=== PATIENT | male | born 1955 | race Caucasian/White ===

== ENCOUNTER 2018-10-11 14:02 | Observation (INO) ==
--- NOTE | 2018-10-11 14:35 | Emergency Department Note ---
Disposition Clinical Impression: ACS (acute coronary syndrome), MAURICE (acute kidney injury), Hypercalcemia Disposition: Admitted As Inpatient Condition: Fair Referrals: Drea Hernandez MD [Primary Care Provider] - Forms: ED Satisfaction Letter, Work/School Release Time of Disposition: 17:40 Abdominal Pain HPI - General Chief Complaint: ED Abdominal Pain Stated Complaint: JAMES,ABD Pain,CP Time Seen by Provider: 10/11/18 14:07 Source: patient - History of Present Illness HPI Narrative: Mr. Cooley is a 63 y/o male with a pmh of HTN, diabetes who presented to the ED with chest pain and right upper quadrant pain. Patient states that 4 days ago, he had abdominal pain in the right upper and lower quadrant along with the diarrhea 10 times. He states that he time he was lightheaded and nauseated. On diarrhea had improved and he continued to have lightheadedness began to have chest pain on the right side. He states that it is intermittent and occurring more when he was walking. His abdominal pain. He felt weak diffusely and almost passed out last night. This morning he woke up with a headache that is currently a 5/10 in the occiptal region. He has had his gallbladder removed. No recent sick contacts. He denies fevers, coughing, dysuria. Pain Scale: 6 - Related Data Home Medications Medication Instructions Recorded Confirmed Aspirin [Adult Aspirin] 81 mg PO DAILY 10/11/18 10/11/18 Atorvastatin [Lipitor] 20 mg PO HS 10/11/18 10/11/18 Cyclobenzaprine [Flexeril] 10 mg PO BID 10/11/18 10/11/18 Dulaglutide [Trulicity] 1.5 mg SQ QWEEK 10/11/18 10/11/18 Ergocalciferol (VITAMIN D2) 50,000 unit PO QWEEK 10/11/18 10/11/18 [Vitamin D2] Gabapentin [Neurontin] 400 mg PO TID 10/11/18 10/11/18 Glimepiride [Amaryl] 2 mg PO BID 10/11/18 10/11/18 Insulin Glargine,Hum.rec.anlog 80 unit SQ BID 10/11/18 10/11/18 [Basaglar [place] U-100] Lisinopril-HCTZ 10-12.5 [Prinzide 2 each PO DAILY 10/11/18 10/11/18 10-12.5] Allergies Allergy/AdvReac Type Severity Reaction Status Date / Time No Known Allergies Allergy Verified 02/15/17 17:16 Abdominal Pain PMH - Past Medical History Medical history: Reports: arthritis, diabetes, hypertension Male Surgical History: Reports: cholecystectomy Psychiatric history: Reports: no psych history - Social History Smoking status: Never smoker Alcohol use: Reports: none Drug use: Reports: none Physical Exam Constitutional: Alert, in no acute distress Head: Normocephalic, atraumatic Heart: Normal, regular rate and rhythm, no murmurs, chest pain not reproducible with palpation Lungs: Clear to auscultation, no wheezes, rales, or rhonchi Abdomen: tenderness present in his RUQ, Soft, nondistended, no guarding or rigidity. Extremities: No edema, radial pulse +2/4, capillary refill <2sec. Skin: Skin warm and dry, no lesions, no rashes, no jaundice Neurologic: strength 5/5 in all extremities Psych: Cooperative with exam, good eye contact, cognitive function intact - General Limitations: no limitations General appearance: alert, in no apparent distress Course Course Narrative: Upon initial evaluation, patient is alert in no acute distress. He is sitting comfortably in the ED. Due to chest pain and lightheadness we will obtain an EKG , CMP, CBC, and troponin. Patient states that this is similar to how he felt for pneumonia but currently having associated coughing. - Reevaluation(s) Reevaluation #1: EKG show sinus rhythm, QTC and [place] intervals are normal. [place] normal. Flattening of T-wave in lead III. Heart score is 6 without troponin. Will give ASA. Time: 15:03 Reevaluation #2: CXR showed no acute processes. Labs showed elevated creatinine from baseline of 2.1. Troponin was negative. Calcium was elevated at 12. Patient was diagnosed with MAURICE and hypercalemia. Discussed admission with hospitalist Dr. Rockwell and she accepted admission for chest pain workup for CAD, MAURICE and hyperkalemia. Time: 17:40 Vital Signs Temperature 97.7 F 10/11/18 14:04 Pulse Rate 104 10/11/18 14:04 Respiratory Rate 18 10/11/18 14:04 Blood Pressure 159/83 10/11/18 14:04 O2 Sat by Pulse Oximetry 94 10/11/18 14:04 Temperature 97.7 F 10/11/18 14:18 Pulse Rate 104 10/11/18 14:18 Respiratory Rate 18 10/11/18 14:18 Blood Pressure 159/83 10/11/18 14:18 O2 Sat by Pulse Oximetry 94 10/11/18 14:18 Oxygen Delivery Oxygen Delivery Room Air Abdominal Pain - Medical Records Medical records reviewed: Yes I reviewed the patient's medical records. - Lab Data Lab results reviewed: Yes I reviewed the patient's lab results. Result diagrams: 10/11/18 14:38 10/11/18 14:31 Lab Results 10/11/18 10/11/18 10/11/18 Range/Units 14:31 14:38 14:38 WBC 11.0 (4.3-11.1) K/mcL RBC 5.11 (4.19-5.50) M/mcL Hgb 14.8 (12.9-16.9) g/dL Hct 44.8 (37.5-50.1) % MCV 87.7 (83.0-100.0) fL MCH 29.0 (28.0-33.3) pg MCHC 33.0 (31.6-35.5) g/dL RDW 13.5 (11.5-14.5) % Plt Count 240 (140-400) K/mcL MPV 10.1 (9.4-12.4) fL Immature Gran % 0.5 (0-4) % Seg Neutrophils % 77.9 % Lymphocytes % 9.8 % Monocytes % 9.8 % Eosinophils % 1.2 % Basophils % 0.8 % Neutrophils # 8.6 (1.6-8.9) K/mcL Lymphocytes # 1.1 (0.6-4.6) K/mcL Monocytes # 1.1 (0.0-1.3) K/mcL Eosinophils # 0.1 (0.0-0.6) K/mcL Basophils # 0.1 (0.0-0.2) K/mcL Sodium 137 (136-145) mEq/L Potassium 4.1 (3.5-5.1) mEq/L Chloride 100 (98-107) mEq/L Carbon Dioxide 28 (23-29) mEq/L BUN 41 H (8-23) mg/dL Creatinine 2.12 H (0.70-1.30) mg/dL Est GFR ( Amer) 38 L (> 60) Est GFR (Non-Af Amer) 32 L (> 60) BUN/Creatinine Ratio 19 (6-26) Glucose 175 H (70-105) mg/dL Calculated Osmolality 298 (280-300) Calcium 12.2 H (8.6-10.3) mg/dL Total Bilirubin 0.9 (0.3-1.0) mg/dL AST 33 (13-39) Units/L ALT 37 (7-52) Units/L Alkaline Phosphatase 97 (34-104) Units/L Troponin I < 0.03 (< 0.04) ng/mL Serum Total Protein 7.5 (6.4-8.9) g/dL Albumin 4.7 (3.5-5.7) g/dL Globulin 2.8 (2.4-3.5) g/dL Albumin/Globulin Ratio 1.7 (1.1-2.2) - Radiology Data Radiology results reviewed: Yes I reviewed the patient's radiology results.
[2018-10-11 14:54] LABS: Basophils # 0.1 K/mcL (0.0-0.2); Basophils % 0.8 %; Eosinophils # 0.1 K/mcL (0.0-0.6); Eosinophils % 1.2 %; Hematocrit 44.8 % (37.5-50.1); Hemoglobin 14.8 g/dL (12.9-16.9); Immature Granulocytes % 0.5 % (0-4); Lymphocytes # 1.1 K/mcL (0.6-4.6); Lymphocytes % 9.8 %; Mean Corpuscular Volume 87.7 fL (83.0-100.0); Mean Platelet Volume 10.1 fL (9.4-12.4); Monocytes # 1.1 K/mcL (0.0-1.3); Monocytes % 9.8 %; Neutrophils # 8.6 K/mcL (1.6-8.9); Platelet Count 240 K/mcL (140-400); Red Blood Count 5.11 M/mcL (4.19-5.50); Red Cell Distribution Width 13.5 % (11.5-14.5); Segmented Neutrophils % 77.9 %
[2018-10-11] MEDS ORDERED: Aspirin 325 MG TABLET PO ONE (14:57)
--- NOTE | 2018-10-11 15:00 | Emergency Department Note ---
Disposition Clinical Impression: ACS (acute coronary syndrome) Disposition: Admitted As Inpatient Forms: ED Satisfaction Letter, Work/School Release Time of Disposition: 15:00 General Adult HPI - General Chief complaint: ED Abdominal Pain Stated complaint: JAMES,ABD Pain,CP Time Seen by Provider: 10/11/18 14:07 Source: patient Limitations: no limitations Nursing Notes Reviewed: Yes Vital Signs Reviewed: Yes - History of Present Illness HPI Narrative: Attestation note: Patient was seen with the family practice resident: Dr. Ivette Centeno. I was present for the significant portions of the performance and interpretation of procedures and EKGs. I have personally performed a face to face evaluation on this patient. I have reviewed and agree with history and physical examination patient management and disposition. Briefly: 63-year-old male comes in with exertional tolerance change diaphoresis right-sided chest pain pain radiating to the neck and jaw his HEART score is 6 moderate risk. He also some right upper quadrant discomfort but is a distant cholecystectomy. Patient said he had a treadmill test "many years ago". No recent evaluations. EKG shows nonspecific ST-T changes again his HEART score 6 patient understands the recommendations are to admit him. He does take a baby aspirin daily will be given 325 mg of aspirin. Currently he is chest pain-free will undergo chest x-ray troponin screening labs and then admission. Admission disposition pending Pain Scale: 6 - Related Data Previous Rx's Medication Instructions Recorded HYDROcodone/Acet 5/325 mg [[place] 1 tab PO Q6H PRN #25 tab 07/29/16 5-325 mg] Ondansetron ODT [Zofran ODT] 4 mg SL Q6HR #10 tab.rapdis 02/15/17 Allergies Allergy/AdvReac Type Severity Reaction Status Date / Time No Known Allergies Allergy Verified 02/15/17 17:16 Past Medical History - Past Medical History Medical history: Reports: arthritis, diabetes, hypertension Psychiatric history: Reports: no psych history - Social History Smoking Status: Never smoker Smokeless Tobacco Status: Yes Alcohol use: Reports: none Drug use: Reports: none Physical Exam - General Limitations: no limitations General appearance: alert, in no apparent distress Course Vital Signs Temperature 97.7 F 10/11/18 14:04 Pulse Rate 104 10/11/18 14:04 Respiratory Rate 18 10/11/18 14:04 Blood Pressure 159/83 10/11/18 14:04 O2 Sat by Pulse Oximetry 94 10/11/18 14:04 Temperature 97.7 F 10/11/18 14:18 Pulse Rate 104 10/11/18 14:18 Respiratory Rate 18 10/11/18 14:18 Blood Pressure 159/83 10/11/18 14:18 O2 Sat by Pulse Oximetry 94 10/11/18 14:18 Oxygen Delivery Oxygen Delivery Room Air Medical Decision Making - Lab Data Result diagrams: 10/11/18 14:38 Lab Results 10/11/18 Range/Units 14:38 WBC 11.0 (4.3-11.1) K/mcL RBC 5.11 (4.19-5.50) M/mcL Hgb 14.8 (12.9-16.9) g/dL Hct 44.8 (37.5-50.1) % MCV 87.7 (83.0-100.0) fL MCH 29.0 (28.0-33.3) pg MCHC 33.0 (31.6-35.5) g/dL RDW 13.5 (11.5-14.5) % Plt Count 240 (140-400) K/mcL MPV 10.1 (9.4-12.4) fL Immature Gran % 0.5 (0-4) % Seg Neutrophils % 77.9 % Lymphocytes % 9.8 % Monocytes % 9.8 % Eosinophils % 1.2 % Basophils % 0.8 % Neutrophils # 8.6 (1.6-8.9) K/mcL Lymphocytes # 1.1 (0.6-4.6) K/mcL Monocytes # 1.1 (0.0-1.3) K/mcL Eosinophils # 0.1 (0.0-0.6) K/mcL Basophils # 0.1 (0.0-0.2) K/mcL
[2018-10-11 15:17] LABS: Albumin 4.7 g/dL (3.5-5.7); Albumin/Globulin Ratio 1.7 (1.1-2.2); Bilirubin,Total 0.9 mg/dL (0.3-1.0); Calcium 12.2 mg/dL (8.6-10.3); Globulin 2.8 g/dL (2.4-3.5); Potassium 4.1 mEq/L (3.5-5.1); Total Protein 7.5 g/dL (6.4-8.9)
[2018-10-11] MEDS ORDERED: 0.9 % Sodium Chloride 500 ML IVC ONE (15:23)
[2018-10-11] MEDS ORDERED: Naloxone 0.4 MG/ML INJ IVP PRN ×2 (17:24→17:29)
[2018-10-11] MEDS ORDERED: Dextrose Gel 15 GM/37.5 ML TUBE PO PRN ×2 (17:28)
[2018-10-11] MEDS ORDERED: *HR* Dextrose 50 % in Water (Syg) 50 ML SYRINGE IVP PRN (17:28)
[2018-10-11] MEDS ORDERED: D5% in Water 1,000 ML IVC PRN (17:28)
[2018-10-11] MEDS ORDERED: traMADol 50 MG TABLET PO PRN (17:29)
[2018-10-11] MEDS ORDERED: Acetaminophen 325 MG TABLET PO PRN (17:29)
[2018-10-11] MEDS ORDERED: *HR* OxyCODONE Immed Rel 5 MG TABLET PO PRN (17:29)
--- NOTE | 2018-10-11 17:31 | Internal Med History&Physical ---
Date of Encounter: 10/11/18 Time of Encounter: 17:00 Internal Medicine - H&P: HPI Chief complaint: Chest and abdominal pain Admitted From: Emergency Dept Plans for Post Hospital Care: Home History of present illness: Mr. Cooley is a 63 year old male with a past medical history significant for hypertension, hyperlipidemia, diabetes mellitus, presented to the hospital and only has not been feeling well, particularly any chest pain on the right side, for the past few days, moderate intensity, sharp, localized to the lower rip, aggravated with movement, no relieving factors. Patient also complaining of abdominal pain, right upper quadrant, sharp, nonradiating, no aggravating or relieving factors. The patient mentioned that he started feeling sick last Saturday, he thought that he caught a cold. He also had diarrhea, 5-10 episodes one day, watery, no associated blood or mucus. Diarrhea resolved next day but the patient was still feeling sick and he took off from work. Then he developed this abdominal pain and chest pain which brought him to the hospital. Patient has been feeling overall lethargic, weak, having little energy. Patient also mentions that he has lost 11 pounds in last 1 month, it was u nintentional. Also complains of drenching sweats in past 1 week. Patient attending gives no medications regularly. In the ED, patient was hemodynamically stable. EKG was done which did not show any acute abnormalities concerning for acute HI. Troponin was within normal limit. Chest x-ray was normal. Laboratory workup showed elevated calcium levels, acute kidney injury with creatinine of 2.12. Patient was given IV fluids and admitted for further management. Past Med Surg Social Fam HX - Past Medical History Medical history: arthritis, diabetes, hypertension Psychiatric history: no psych history - Past Surgical History Surgical History: cholecystectomy - Social History Smoking Status: Never smoker Smokeless Tobacco Status: Yes Alcohol use: none Drug use: none - Additional Family History Additional family history: Negative for any malignancy in 1st degree relative. Positve for cardiac conditions in parents Internal Medicine - H&P: Meds Aspirin [Adult Aspirin] 81 mg PO DAILY 10/11/18 [History] Atorvastatin [Lipitor] 20 mg PO HS 10/11/18 [History] Cyclobenzaprine [Flexeril] 10 mg PO BID 10/11/18 [History] Dulaglutide [Trulicity] 1.5 mg SQ QWEEK 10/11/18 [History] Ergocalciferol (VITAMIN D2) [Vitamin D2] 50,000 unit PO QWEEK 10/11/18 [History] Gabapentin [Neurontin] 400 mg PO TID 10/11/18 [History] Glimepiride [Amaryl] 2 mg PO BID 10/11/18 [History] Insulin Glargine,Hum.rec.anlog [Basaglar [place] U-100] 80 unit SQ BID 10/11/18 [History] Lisinopril-HCTZ 10-12.5 [Prinzide 10-12.5] 2 each PO DAILY 10/11/18 [History] Allergy/AdvReac Type Severity Reaction Status Date / Time No Known Allergies Allergy Verified 02/15/17 17:16 All Systems PM: A 10-system review of systems was performed and is negative for pertinent findings except as documented above in the HPI. Review of systems: General: Negative for fever, chills, rigors. HEENT: Negative for swelling, discharge from nose, discharge from ears. EYES: Negative for any discharge from the eyes. Respiratory: Negative for shortness of breath, orthopnea, exertional dyspnea. Cardiovascular: See HPI. Gastrintestical: See HPI Genitourinary: Negative for dysuria, hematuria, nocturia, increased frequency of urine. Hematological: Negative for blood loss, negative for active cancer. Neurological: Negative for headache, dizziness, blurry vision, loss os power and sensations. Endocrinology: Negative for constipation, polyuria, polydipsia. Psychiatric: Negative for anxiety or depression. - Constitutional Vitals: Temp Pulse Resp BP Pulse Ox 97.7 F 84 17 131/80 97 10/11/18 14:18 10/11/18 15:58 10/11/18 15:58 10/11/18 15:58 10/11/18 15:58 Exam: General: Alert and oriented, no physical distress, able to follow commands. HEENT: No thyromegaly, no lymphadenopathy, no discharge. Eyes: No discharge. Respiratory: Normal vesicular breathing, no added sounds, breathing equal in both sides. CVS: Normal heart sounds, no murmurs, no edema. Extremities: No peripheral edema, peripheral pulses intact. Lymph nodes: No lymphadenopathy Gastrointestinal: Soft, but tenderness appreciated in the right upper quadrant. No organomegaly appreciated. Musculoskeltal: Normal rnage on motion, no mid tendreness in the back bone. Genitourinary: No paravertebral tenderness. Neurological: Alert and oriented. No focal deficits. Cranial nerves II-XII intact. Internal Med - H&P Results - Labs CBC & Chem 7: 10/11/18 14:38 10/11/18 14:31 Labs: Short CBC 10/11/18 Range/Units 14:38 WBC 11.0 (4.3-11.1) K/mcL Hgb 14.8 (12.9-16.9) g/dL Hct 44.8 (37.5-50.1) % Plt Count 240 (140-400) K/mcL Neutrophils # 8.6 (1.6-8.9) K/mcL BMP 10/11/18 14:31 Sodium 137 Potassium 4.1 Chloride 100 Carbon Dioxide 28 BUN 41 H Creatinine 2.12 H Glucose 175 H Calcium 12.2 H Cardiac Enzymes 10/11/18 Range/Units 14:38 Troponin I < 0.03 (< 0.04) ng/mL Liver Function 10/11/18 Range/Units 14:31 Total Bilirubin 0.9 (0.3-1.0) mg/dL AST 33 (13-39) Units/L ALT 37 (7-52) Units/L Alkaline Phosphatase 97 (34-104) Units/L Albumin 4.7 (3.5-5.7) g/dL - Impressions ITS Impressions Chest X-Ray 10/11/18 14:28 IMPRESSION: Unremarkable portable chest radiograph. D/ / Rico Ham MD / Rico Ham MD Interpreting Provider: Rico Ham MD - Assessment and Plan (1) MAURICE (acute kidney injury) Current Visit: Yes Status: Acute Assessment and plan: Etiology unclear. Could be related to hypercalcemia. BUN/Cr patient with elevated points towards prerenal etiology. Continue the patient on IV fluids. Ordered CT scan of the abdomen to rule out kidney stone considering hypoglycemia and abdominal pain. Order urine studies including urine calcium, urine sodium, urine creatinine, osmolality. -Continue to monitor the kidney functions. (2) Hypercalcemia Current Visit: Yes Status: Acute Assessment and plan: -Presented with a calcium of 12.2. Previous labs from one year that showed normal calcium Etiology unclear. Patient was given IV fluids in the beginning We will continue the patient on IV fluids. Patient was taking vitamin D and calcium at home. We will order repeat calcium, ionized calcium, parathyroid hormone levels, vitamin D levels. Considering abdominal and chest pain, and weight loss, order CT scan of the chest to rule out any occult malignancy. (3) Chest pain Current Visit: Yes Status: Acute Assessment and plan: Etiology unclear. -Does not seem to be ACS -EKG was normal. Troponin were normal. Could be muscular skeletal vs pleuritis -Pain management. continue to monitor. Qualifiers: Chest pain type: other chest pain Qualified Code(s): R07.89 - Other chest pain; R07.8 - Other chest pain (4) Abdominal pain Current Visit: Yes Status: Acute Assessment and plan: Right upper quadrant abdominal pain. etiology unclear. -that does not seem to be appendicitis or cholecystitis. Patient had history of cholecystectomy. Pain management. Order CT scan of the abdomen. Qualifiers: Abdominal location: right upper quadrant Qualified Code(s): R10.11 - Right upper quadrant pain (5) Diabetes mellitus Current Visit: Yes Status: Acute Assessment and plan: Type 2. -On multiple medications at home including insulin. Hold other antidiabetic medication in context of worsening kidney functions. Patient already took 80 units of insulin Lantus in the morning. He normally takes 80 units twice a day. Considering his worsening kidney functions, we will start him on 40 units of insulin detemir at this point. Ordered a moderate dose sliding scale with meals. consistent carb diet. 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 Continue atorvastatin Qualifiers: Hyperlipidemia type: unspecified Qualified Code(s): E78.5 - Hyperlipidemia, unspecified (7) Hypertension Current Visit: Yes Status: Acute Assessment and plan: Takes lisinopril and HCTZ at home. Hold in context of his worsening kidney functions and hypercalcemia. Ordered hydralazine when necessary for the hypertension. blood pressure for now seems to be stable. Qualifiers: Hypertension type: essential hypertension Qualified Code(s): I10 - Essential (primary) hypertension - Summary of Assessment and Plan Summary of Assessment and Plan: -Diet: carb Code status: full code - Time Spent With Patient Total time spent is greater than 50% in coordination of care (as documented) at patient's floor/unit and/or counseling patient:
[2018-10-11 18:18] LABS: VBG Ionized Calcium 1.44 mmol/L (1.15-1.35)
[2018-10-11] MEDS: 0.9 % Sodium Chloride 1,000 ML IVC SCH (18:27)
[2018-10-11] MEDS: *HR* Heparin 5,000 UNIT/ML VIAL SQ SCH (18:27)
[2018-10-11] MEDS ORDERED: Insulin DETEMIR 100 UNIT/ML X5UNITS SQ SCH (21:00)
[2018-10-11] MEDS: Gabapentin 300 MG CAPSULE PO SCH (21:15)
[2018-10-12 00:48] LABS: Basophils # 0.1 K/mcL (0.0-0.2); Basophils % 0.8 %; Eosinophils # 0.5 K/mcL (0.0-0.6); Eosinophils % 5.3 %; Hematocrit 41.1 % (37.5-50.1); Hemoglobin 13.5 g/dL (12.9-16.9); Immature Granulocytes % 0.2 % (0-4); Lymphocytes # 2.2 K/mcL (0.6-4.6); Lymphocytes % 24.7 %; Mean Corpuscular HGB Conc 32.8 g/dL (31.6-35.5); Mean Corpuscular Hemoglobin 29.2 pg (28.0-33.3); Mean Corpuscular Volume 88.8 fL (83.0-100.0); Monocytes # 0.9 K/mcL (0.0-1.3); Monocytes % 10.7 %; Neutrophils # 5.1 K/mcL (1.6-8.9); Platelet Count 238 K/mcL (140-400); Red Blood Count 4.63 M/mcL (4.19-5.50); Red Cell Distribution Width 13.8 % (11.5-14.5); Segmented Neutrophils % 58.3 %; White Blood Count 8.7 K/mcL (4.3-11.1)
[2018-10-12] MEDS: 0.9 % Sodium Chloride 1,000 ML IVC SCH ×3 (01:06→20:49)
[2018-10-12 01:07] LABS: Calcium 10.6 mg/dL (8.6-10.3); Magnesium 1.7 mg/dL (1.6-2.6); Phosphorous 2.6 mg/dL (2.7-4.5); Potassium 3.7 mEq/L (3.5-5.1)
[2018-10-12] MEDS: *HR* Heparin 5,000 UNIT/ML VIAL SQ SCH ×2 (05:20→17:27)
[2018-10-12] MEDS: Gabapentin 300 MG CAPSULE PO SCH ×3 (08:23→20:48)
[2018-10-12] MEDS: Aspirin Enteric Coated 81 MG Tablet PO SCH (08:23)
[2018-10-12] MEDS: Insulin LISPRO 300 UNITS/3 ML VIAL SQ SCH ×3 (08:24→17:26)
--- NOTE | 2018-10-12 08:54 | Internal Med Progress Note ---
Hospitalist Progress Note - Encounter Date of Encounter: 10/12/18 Time of Encounter: 08:40 - Subjective Interval History: Seen at bedside. Is feeling better. Mentions improvement in the pain in the abdomen as well as chest. Calcium levels also improving. Denies chest pain, SOB, fever, chills, rigors. Doing overall better. No acute events overnight. - Exam Vitals: Temp Pulse Resp BP Pulse Ox 97.6 F 71 16 118/70 95 10/12/18 06:48 10/12/18 06:48 10/12/18 06:48 10/12/18 06:48 10/12/18 06:48 Exam: General: Alert and oriented, no physical distress, able to follow commands. HEENT: No thyromegaly, no lymphadenopathy, no discharge. Eyes: No discharge. Respiratory: Normal vesicular breathing, no added sounds, breathing equal in both sides. CVS: Normal heart sounds, no murmurs, no edema. Extremities: No peripheral edema, peripheral pulses intact. Lymph nodes: No lymphadenopathy Gastrointestinal: Soft, tenderness improved since yesterday, non distended. Musculoskeltal: Normal rnage on motion, mid tendreness in the back bone. Genitourinary: No paravertebral tenderness. Neurological: Alert and oriented. No focal deficits. Cranial nerves II-XII int act. - Assessment and Plan (1) MAURICE (acute kidney injury) Current Visit: Yes Status: Acute Assessment and Plan: Etiology unclear. Could be related to hypercalcemia. BUN/Cr patient with elevated points towards prerenal etiology. -Urine studies were not ollected yesterday, CT scan of the abdomen negative for kidney stones. Continue the patient on IV fluids. Await urine studies including urine calcium, urine sodium, urine creatinine, osmolality. -Continue to monitor the kidney functions. (2) Hypercalcemia Current Visit: Yes Status: Acute Assessment and Plan: -Presented with a calcium of 12.2. Previous labs from one year that showed normal calcium Etiology unclear. PTH v low, possiblities are malignancy, vitamin D intoxication, granulomatous disease, increased calcium ingestion, thiazide use. -25 OH level are 49, -Awaiting PTHrP, SPEP, free light chains. -CT scan of the chest negative fr any malignancy, CT abdomen did show a granuloma in the liver but unsure about any previous granulamomatous diseease history which could explain hypercalcemia. -ALso showed adrenal adenoma, whihc seems benign. We will continue the patient on IV fluids. -Obtain repeat labs tomorrow (3) Chest pain Current Visit: Yes Status: Acute Assessment and Plan: Etiology unclear. -Does not seem to be ACS -EKG was normal. Troponin were normal. Could be muscular skeletal vs pleuritis -Pain management. continue to monitor. (4) Abdominal pain Current Visit: Yes Status: Acute Assessment and Plan: - Resolved. etiology unclear. -CT scna of the abdomen without any masses. Has grnuloma in the liver but does not seem to be casue of pain as the pain has resolved. Pain management. (5) Diabetes mellitus Current Visit: Yes Status: Acute Assessment and Plan: Type 2. -On multiple medications at home including insulin. -Currently Blood gluocse levels in the reasonable range, Hold other antidiabetic medication in context of worsening kidney functions. Continu on detemir at lower dose of 80 U HS as compared to 80 U BID considering worsended renal functions. Ordered a moderate dose sliding scale with meals. consistent carb diet. (6) Hyperlipidemia Current Visit: Yes Status: Acute Assessment and Plan: Chronic. Continue atorvastatin (7) Hypertension Current Visit: Yes Status: Acute Assessment and Plan: Takes lisinopril and HCTZ at home. Hold in context of his worsening kidney functions and hypercalcemia. Ordered hydralazine when necessary for the hypertension. blood pressure for now seems to be stable. (8) Adrenal adenoma Current Visit: Yes Status: Acute Assessment and Plan: -CT scan showed 16 mm benign left adrenal adenoma. -Outpt follow up recommended. -No signs of cortisol excess or deficieny (9) Hypophosphatemia Current Visit: Yes Status: Acute Assessment and Plan: -Minimally low phosphorous -Encourage oral intake. -Repeat levels tomorrow - Time Spent with Patient Total time spent is greater than 50% in coordination of care (as documented) at patient's floor/unit and/or counseling patient: Internal Medicine: Result - Labs CBC & Chem 7: 10/12/18 00:37 10/12/18 00:37 Labs: Short CBC 10/11/18 10/12/18 Range/Units 14:38 00:37 WBC 11.0 8.7 (4.3-11.1) K/mcL Hgb 14.8 13.5 (12.9-16.9) g/dL Hct 44.8 41.1 (37.5-50.1) % Plt Count 240 238 (140-400) K/mcL Neutrophils # 8.6 5.1 (1.6-8.9) K/mcL BMP 10/11/18 10/11/18 10/12/18 14:31 18:00 00:37 Sodium 137 139 Potassium 4.1 3.7 Chloride 100 103 Carbon Dioxide 28 29 BUN 41 H 41 H Creatinine 2.12 H 2.03 H Glucose 175 H 151 H Calcium 12.2 H 11.8 H 10.6 H Cardiac Enzymes 10/11/18 10/12/18 Range/Units 14:38 00:37 Troponin I < 0.03 < 0.03 (< 0.04) ng/mL Liver Function 10/11/18 Range/Units 14:31 Total Bilirubin 0.9 (0.3-1.0) mg/dL AST 33 (13-39) Units/L ALT 37 (7-52) Units/L Alkaline Phosphatase 97 (34-104) Units/L Albumin 4.7 (3.5-5.7) g/dL - Impressions Impressions Chest X-Ray 10/11/18 14:28 IMPRESSION: Unremarkable portable chest radiograph. D/ / Rico Ham MD / Rico Ham MD Interpreting Provider: Rico Ham MD Abdomen/Pelvis CT 10/11/18 17:26 IMPRESSION: 1. No acute abnormality in the chest, abdomen, or pelvis. 2. Mild left basilar bronchiectasis with mucous plugging. 3. 15 mm peripherally calcified ovoid lesion in the liver dome nonspecific but possibly representing a granuloma. 4. Status post cholecystectomy. 5. 16 mm benign left adrenal adenoma. 6. Colonic diverticulosis. D/ / Bienvenido Guerrero MD / Bienvenido Guerrero MD Interpreting Provider: Bienvenido Guerrero MD Chest CT 10/11/18 17:26 IMPRESSION: 1. No acute abnormality in the chest, abdomen, or pelvis. 2. Mild left basilar bronchiectasis with mucous plugging. 3. 15 mm peripherally calcified ovoid lesion in the liver dome nonspecific but possibly representing a granuloma. 4. Status post cholecystectomy. 5. 16 mm benign left adrenal adenoma. 6. Colonic diverticulosis. D/ / Bienvenido Guerrero MD / Bienvenido Guerrero MD Interpreting Provider: Bienvenido Guerrero MD Consult Discharge Plan - Plan Referrals: Drea Hernandez MD [Primary Care Provider] - (3) Chest pain Qualifiers: Chest pain type: other chest pain Qualified Code(s): R07.89 - Other chest pain; R07.8 - Other chest pain (4) Abdominal pain Qualifiers: Abdominal location: right upper quadrant Qualified Code(s): R10.11 - Right upper quadrant pain (5) Diabetes mellitus Qualifiers: Diabetes mellitus type: type 2 Diabetes mellitus long distance operator insulin use: with long distance operator use Diabetes mellitus complication status: with kidney complications Diabetes mellitus complication detail: with other kidney complication Qualified Code(s): E11.29 - Type 2 diabetes mellitus with other diabetic kidney complication; Z79.4 - hand roller engraver (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
[2018-10-12 10:06] LABS: Sodium, Urine 38.9 mEq/L
[2018-10-12] MEDS: Insulin DETEMIR 100 UNIT/ML X5UNITS SQ SCH (20:48)
[2018-10-13 01:58] LABS: RBC,Urine 0-3 per hpf (0-3); Squamous Epithelial Cell,Urine Few per lpf (None-Few); WBC,Urine 0-3 per hpf (0-3)
[2018-10-13 01:59] LABS: Bacteria,Urine None Seen per hpf (None-Few)
[2018-10-13 05:11] LABS: Basophils # 0.1 K/mcL (0.0-0.2); Eosinophils # 0.6 K/mcL (0.0-0.6); Eosinophils % 7.7 %; Hematocrit 39.5 % (37.5-50.1); Hemoglobin 12.6 g/dL (12.9-16.9); Immature Granulocytes % 0.4 % (0-4); Lymphocytes # 1.7 K/mcL (0.6-4.6); Lymphocytes % 23.6 %; Mean Corpuscular HGB Conc 31.9 g/dL (31.6-35.5); Mean Corpuscular Volume 90.8 fL (83.0-100.0); Mean Platelet Volume 9.9 fL (9.4-12.4); Monocytes # 0.8 K/mcL (0.0-1.3); Monocytes % 10.9 %; Neutrophils # 4.1 K/mcL (1.6-8.9); Platelet Count 222 K/mcL (140-400); Red Blood Count 4.35 M/mcL (4.19-5.50); Red Cell Distribution Width 13.9 % (11.5-14.5); Segmented Neutrophils % 56.4 %; White Blood Count 7.3 K/mcL (4.3-11.1)
[2018-10-13 05:13] LABS: VBG Ionized Calcium 1.29 mmol/L (1.15-1.35)
[2018-10-13 05:28] LABS: Calcium 9.2 mg/dL (8.6-10.3); Potassium 3.5 mEq/L (3.5-5.1)
[2018-10-13] MEDS: *HR* Heparin 5,000 UNIT/ML VIAL SQ SCH ×2 (06:09→16:29)
[2018-10-13] MEDS: 0.9 % Sodium Chloride 1,000 ML IVC SCH (06:09)
[2018-10-13] MEDS: Aspirin Enteric Coated 81 MG Tablet PO SCH (08:26)
[2018-10-13] MEDS: Gabapentin 300 MG CAPSULE PO SCH ×3 (08:26→21:39)
[2018-10-13] MEDS: Insulin LISPRO 300 UNITS/3 ML VIAL SQ SCH ×3 (08:27→16:56)
--- NOTE | 2018-10-13 15:41 | Internal Med Progress Note ---
Hospitalist Progress Note - Encounter Date of Encounter: 10/13/18 Time of Encounter: 10:00 - Subjective Interval History: No major events overnight. Patient was seen this a.m. He denied fever, chills or night sweats. He has no nausea, vomiting or abdominal pain. Patient denied chest pain, shortness of breath or palpitation. - Exam Vitals: Temp Pulse Resp BP Pulse Ox 97.5 F L 95 16 135/71 98 10/13/18 15:04 10/13/18 15:04 10/13/18 15:04 10/13/18 15:04 10/13/18 15:04 Exam: General: Alert and oriented, no physical distress, able to follow commands. HEENT: No thyromegaly, no lymphadenopathy, no discharge. Eyes: No discharge. Respiratory: Normal vesicular breathing, no added sounds, breathing equal in both sides. CVS: Normal heart sounds, no murmurs, no edema. Extremities: No peripheral edema, peripheral pulses intact. Lymph nodes: No lymphadenopathy Gastrointestinal: Soft, tenderness improved since yesterday, non distended. Musculoskeltal: Normal rnage on motion, mid tendreness in the back bone. Genitourinary: No paravertebral tenderness. Neurological: Alert and oriented. No focal deficits. Cranial nerves II-XII intact. - Assessment and Plan (1) Hypercalcemia Current Visit: Yes Status: Acute Assessment and Plan: -Presented with a calcium of 12.2. improving. Etiology unclear. PTH v low, possiblities are malignancy,, granulomatous disease, increased calcium ingestion, thiazide use, vitamin D intoxication ( 25-OH) 49 however Po4 is low. -Awaiting PTHrP, SPEP, free light chains and immunofixation -CT chest negative for any malignancy, CT abdomen did show a granuloma in the liver. -ALso showed adrenal adenoma, whihc seems benign. We will continue the patient on IV fluids. check CMP tomorrow. (2) MAURICE (acute kidney injury) Current Visit: Yes Status: Acute Assessment and Plan: Could be related to hypercalcemia. Cr is improving Continue the patient on IV fluids. -Continue to monitor the kidney functions. (3) Chest pain Current Visit: Yes Status: Resolved Assessment and Plan: -EKG was normal. Troponin were normal. Could be muscular skeletal vs pleuritis -Pain management. continue to monitor. (4) Abdominal pain Current Visit: Yes Status: Resolved Assessment and Plan: - Resolved. 2/2 [address]cemia. . -CT scna of the abdomen was essentially bengin. Pain management. (5) Diabetes mellitus Current Visit: Yes Status: Acute Assessment and Plan: Type 2. On multiple medications at home including insulin. -Currently Blood gluocse levels in the reasonable range, Hold other antidiabetic medication in context of worsening kidney functions. Continu on detemir at lower dose of 80 U HS as compared to 80 U BID considering worsended renal functions. Ordered a moderate dose sliding scale with meals. consistent carb diet. (6) Hyperlipidemia Current Visit: Yes Status: Acute Assessment and Plan: Chronic. Continue atorvastatin (7) Hypertension Current Visit: Yes Status: Acute Assessment and Plan: Takes lisinopril and HCTZ at home. Hold in context of his worsening kidney functions and hypercalcemia. Ordered hydralazine when necessary for the hypertension. blood pressure for now seems to be stable. (8) Adrenal adenoma Current Visit: Yes Status: Acute Assessment and Plan: -CT scan showed 16 mm benign left adrenal adenoma. Will check cortisol level. -Outpt follow up recommended. (9) Hypophosphatemia Current Visit: Yes Status: Acute Assessment and Plan: -Minimally low phosphorous -Encourage oral intake. -Repeat levels tomorrow DVT Prophylaxis: SC heparin - Time Spent with Patient Total time spent is greater than 50% in coordination of care (as documented) at patient's floor/unit and/or counseling patient: Internal Medicine: Result - Labs CBC & Chem 7: 10/13/18 04:51 10/13/18 04:51 Labs: Short CBC 10/13/18 Range/Units 04:51 WBC 7.3 (4.3-11.1) K/mcL Hgb 12.6 L (12.9-16.9) g/dL Hct 39.5 (37.5-50.1) % Plt Count 222 (140-400) K/mcL Neutrophils # 4.1 (1.6-8.9) K/mcL BMP 10/13/18 04:51 Sodium 143 Potassium 3.5 Chloride 107 Carbon Dioxide 27 BUN 34 H Creatinine 1.63 H Glucose 79 Calcium 9.2 Consult Discharge Plan - Plan Referrals: Drea Hernandez MD [Primary Care Provider] - ____ (3) Chest pain Qualifiers: Chest pain type: other chest pain Qualified Code(s): R07.89 - Other chest pain; R07.8 - Other chest pain (4) Abdominal pain Qualifiers: Abdominal location: right upper quadrant Qualified Code(s): R10.11 - Right upper quadrant pain (5) Diabetes mellitus Qualifiers: Diabetes mellitus type: type 2 Diabetes mellitus halfway insulin use: with terminal carman use Diabetes mellitus complication status: with kidney complications Diabetes mellitus complication detail: with other kidney complication Qualified Code(s): E11.29 - Type 2 diabetes mellitus with other diabetic kidney complication; 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
[2018-10-13] MEDS: Insulin DETEMIR 100 UNIT/ML X5UNITS SQ SCH (21:39)
[2018-10-14 03:47] LABS: Alanine Aminotransferase 23 Units/L (7-52); Albumin 3.7 g/dL (3.5-5.7); Albumin/Globulin Ratio 1.7 (1.1-2.2); Alkaline Phosphatase 72 Units/L (34-104); Aspartate Amino Transferase 17 Units/L (13-39); BUN/Creatinine Ratio 21 (6-26); Bilirubin,Total 0.6 mg/dL (0.3-1.0); Blood Urea Nitrogen 27 mg/dL (8-23); Calcium 9.1 mg/dL (8.6-10.3); Carbon Dioxide 25 mEq/L (23-29); Chloride 110 mEq/L (98-107); Globulin 2.2 g/dL (2.4-3.5); Glucose 86 mg/dL (70-105); Osmolality,Calculated 298 (280-300); Potassium 3.6 mEq/L (3.5-5.1); Sodium 142 mEq/L (136-145); Total Protein 5.9 g/dL (6.4-8.9); eGFR For African Americans > 60 (> 60); eGFR For Non-African Americans 55 (> 60)
[2018-10-14] MEDS: *HR* Heparin 5,000 UNIT/ML VIAL SQ SCH (05:52)
--- NOTE | 2018-10-14 07:32 | Electrocardiograph Report ---
[facility] Test Date: 2018-10-11 Pat Name: Paco Cooley Department: [id number] Room: 3B46 Gender: M Intern Architect: : [id number] Requested By: Ivette Centeno Order Number: [id number] Reading MD: Jaime Meraz Measurements Intervals [place] Rate: 91 P: 59 ME: 180 QRS: 60 QRSD: 89 T: 36 QT: 343 QTc: 422 Interpretive Statements Sinus rhythm Electronically Signed On 10-14-2018 6:34:39 EDT by Jaime Meraz
[2018-10-14] MEDS: Gabapentin 300 MG CAPSULE PO SCH (08:37)
[2018-10-14] MEDS: Insulin LISPRO 300 UNITS/3 ML VIAL SQ SCH ×2 (08:37→12:15)
[2018-10-14] MEDS: Aspirin Enteric Coated 81 MG Tablet PO SCH (08:37)
[2018-10-14] MEDS ORDERED: 0.9 % Sodium Chloride 1,000 ML IVC SCH (08:45)
[2018-10-14 11:15] VITALS: BP 143/81
[2018-10-14 14:07] LABS: BUN/Creatinine Ratio 18 (6-26); Blood Urea Nitrogen 25 mg/dL (8-23); Calcium 9.1 mg/dL (8.6-10.3); Carbon Dioxide 27 mEq/L (23-29); Chloride 109 mEq/L (98-107); Glucose 84 mg/dL (70-105); Osmolality,Calculated 298 (280-300); Potassium 3.7 mEq/L (3.5-5.1); Sodium 142 mEq/L (136-145); eGFR For African Americans > 60 (> 60); eGFR For Non-African Americans 51 (> 60)
--- NOTE | 2018-10-14 14:26 | Discharge Summary ---
- NOTES TO OUTPATIENT PROVIDER Notes to Outpatient Provider: Patient was admitted for abdominal pain and was found to have hypercalcemia. Workup included CT of the chest and abdomen were negative for malignancy except for possible hepatic granuloma. PTH and PO4 were low. Vitamin D level was elevated 49. Pending workup included immunofixation, PTHrp, serum free light chain and vitamin D125 is pending and please follow on that. We will repeat his blood work in a week. Hydrochlorothiazide will be started along with vitamin D and calcium level. Orders not resulted at time of discharge: Pending orders 10/11/18 18:00 Vitamin D-1,25(reference test) Routine 10/12/18 00:37 Parathormone Related Peptide AM 0400 Serum Free Light Chain [[place] Lambda Qnt FLC w Ratio] AM 0400 10/13/18 21:50 Immunofixation,Urine (BJP) Routine Date of Encounter: 10/14/18 Time of Encounter: 10:00 - Discharge Diagnosis (1) Hypercalcemia Priority: Primary Status: Acute (2) MAURICE (acute kidney injury) Priority: Secondary Status: Acute (3) Chest pain Priority: Secondary Status: Resolved Qualifiers: Chest pain type: other chest pain Qualified Code(s): R07.89 - Other chest pain; R07.8 - Other chest pain (4) Abdominal pain Priority: Secondary Status: Resolved Qualifiers: Abdominal location: right upper quadrant Qualified Code(s): R10.11 - Right upper quadrant pain (5) Diabetes mellitus Priority: Secondary Status: Acute Qualifiers: Diabetes mellitus type: type 2 Diabetes mellitus exterminator termite insulin use: with exterminator termite use Diabetes mellitus complication status: with kidney complications Diabetes mellitus complication detail: with other kidney complication Qualified Code(s): 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 - Type 2 diabetes mellitus with other diabetic kidney complication; Z79.4 - USP (current) use of insulin (6) Hyperlipidemia Priority: Secondary Status: Acute Qualifiers: Hyperlipidemia type: unspecified Qualified Code(s): E78.5 - Hyperlipidemia, unspecified (7) Hypertension Priority: Secondary Status: Acute Qualifiers: Hypertension type: essential hypertension Qualified Code(s): I10 - Essential (primary) hypertension (8) Adrenal adenoma Priority: Secondary Status: Acute Qualifiers: Laterality: left Qualified Code(s): D35.02 - Benign neoplasm of left adrenal gland (9) Hypophosphatemia Priority: Secondary Status: Acute Hospital course: Mr. Cooley is a 63 year old male with a past medical history significant for hypertension, hyperlipidemia, diabetes mellitus who came into the hospital with abdominal pain. Patient was found to have hypercalcemia for which he was started on IV fluids. Workup included CT of the chest, abdomen and pelvis without contrast was negative for malignancy but revealed possible hepatic granuloma and benign left abdomen adenoma. Vitamin D level was elevated and PTH and phosphate levels were low. Rest of blood work including PTHrP, immunofixation, free light chains and vitamin D1/25 are pending. Patient has also asked that kidney injury likely from his hypercalcemia which resolved with IV fluids. Today, patient is hemodynamically stable, asymptomatic. He will be discharged home in stable condition. I asked him to stop his hydrochlorothiazide, vitamin D and calcium supplementation and follow-up With his ECP in one week. Discharge discussed with: patient - Time Spent with Patient Total time spent providing and/or coordinating discharge services: 35 minutes - Discharge Medications Prescriptions: New Lisinopril [Zestril] 10 mg PO DAILY #30 tablet Continued Ergocalciferol (VITAMIN D2) [Vitamin D2] 50,000 unit PO QWEEK Glimepiride [Amaryl] 2 mg PO BID Cyclobenzaprine [Flexeril] 10 mg PO BID Atorvastatin [Lipitor] 20 mg PO HS Aspirin [Adult Aspirin] 81 mg PO DAILY Dulaglutide [Trulicity] 1.5 mg SQ QWEEK Gabapentin [Neurontin] 400 mg PO TID Insulin Glargine,Hum.rec.anlog [Rudy Dia U-100] 80 unit SQ BID Discontinued Lisinopril-HCTZ 10-12.5 [Prinzide 10-12.5] 2 each PO DAILY Home Medications: Aspirin [Adult Aspirin] 81 mg PO DAILY 10/11/18 [History] Atorvastatin [Lipitor] 20 mg PO HS 10/11/18 [History] Cyclobenzaprine [Flexeril] 10 mg PO BID 10/11/18 [History] Dulaglutide [Trulicity] 1.5 mg SQ QWEEK 10/11/18 [History] Ergocalciferol (VITAMIN D2) [Vitamin D2] 50,000 unit PO QWEEK 10/11/18 [History] Gabapentin [Neurontin] 400 mg PO TID 10/11/18 [History] Glimepiride [Amaryl] 2 mg PO BID 10/11/18 [History] Insulin Glargine,Hum.rec.anlog [Basaglar Kwikpen U-100] 80 unit SQ BID 10/11/18 [History] Lisinopril [Zestril] 10 mg PO DAILY #30 tablet 10/14/18 [Rx] Allergies/Adverse Reactions: Allergy/AdvReac Type Severity Reaction Status Date / Time No Known Allergies Allergy Verified 02/15/17 17:16 Date of admission: 10/11/18 17:08 Primary care physician: Drea Hernandez MD - Constitutional Vitals: Temp Pulse Resp BP Pulse Ox 97.8 F 73 16 143/81 98 10/14/18 11:12 10/14/18 11:12 10/14/18 11:12 10/14/18 11:12 10/14/18 11:12 Exam: General: Alert and oriented, no physical distress, able to follow commands. HEENT: No thyromegaly, no lymphadenopathy, no discharge. Eyes: No discharge. Respiratory: Normal vesicular breathing, no added sounds, breathing equal in both sides. CVS: Normal heart sounds, no murmurs, no edema. Extremities: No peripheral edema, peripheral pulses intact. Lymph nodes: No lymphadenopathy Gastrointestinal: Soft, tenderness improved since yesterday, non distended. Musculoskeltal: Normal rnage on motion, mid tendreness in the back bone. Genitourinary: No paravertebral tenderness. Neurological: Alert and oriented. No focal deficits. Cranial nerves II-XII intact. - Patient Status Disposition: Home, Self-Care Condition: Good Functional capacity at discharge: independent ambulation Overall status at discharge: patient is back to baseline - Discharge Instructions Follow Up With: Drea Hernandez MD [Primary Care Provider] - 10/17/18 1:20 pm - Diet and Activity Activity: return to work once cleared by your PCP/specialist, resume usual activities as tolerated Diet: diabetic diet, low salt diet
[2018-10-14 23:29] LABS: Lambda Qnt Free Light Chains 1.23 mg/dL (0.57-2.63)
[2018-10-16 01:05] LABS: Beta Globulin (PEP) 0.77 g/dL (0.48-1.10)
[2018-10-16 11:08] LABS: Immunoglobulin A 164 mg/dL (68-408); Immunoglobulin G 608 mg/dL (768-1632); Immunoglobulin M 27 mg/dL (35-263)
[2018-10-16 11:17] LABS: IFE Reflexed IFE Done
[2018-10-16 22:05] LABS: Urine Collection Volume RANDOM mL
== END 2018-10-14 15:53 | disposition home or self-care (01) ==
LOC: EMEROOARM 14:02 → 3BNU 14:02 → SUATTDRO 17:08 → 3BNU 17:45
PROVIDERS: ADMIT Internal Medicine; ATTEND Internal Medicine

== ENCOUNTER 2019-12-22 04:20 | Observation (INO) ==
[2019-12-22 05:03] LABS: Basophils # 0.1 K/mcL (0.0-0.2); Basophils % 0.9 %; Eosinophils # 0.6 K/mcL (0.0-0.6); Eosinophils % 5.1 %; Hematocrit 49.8 % (37.5-50.1); Hemoglobin 16.4 g/dL (12.9-16.9); Immature Granulocytes % 0.3 % (0-4); Lymphocytes # 1.7 K/mcL (0.6-4.6); Mean Corpuscular HGB Conc 32.9 g/dL (31.6-35.5); Mean Corpuscular Hemoglobin 28.7 pg (28.0-33.3); Mean Corpuscular Volume 87.2 fL (83.0-100.0); Mean Platelet Volume 9.7 fL (9.4-12.4); Monocytes # 0.9 K/mcL (0.0-1.3); Monocytes % 8.4 %; Neutrophils # 7.5 K/mcL (1.6-8.9); Platelet Count 227 K/mcL (140-400); Red Blood Count 5.71 M/mcL (4.19-5.50); Red Cell Distribution Width 13.2 % (11.5-14.5); Segmented Neutrophils % 69.3 %; White Blood Count 10.9 K/mcL (4.3-11.1)
[2019-12-22 05:05] LABS: INR 1.1; Prothrombin Time 12.2 Seconds (9.4-12.1)
[2019-12-22 05:08] LABS: Activated Partial Thrombo Time 31.4 Seconds (26.0-36.0)
[2019-12-22 06:08] LABS: Alanine Aminotransferase 42 Units/L (7-52); Albumin 4.6 g/dL (3.5-5.7); Albumin/Globulin Ratio 1.9 (1.1-2.2); Alkaline Phosphatase 104 Units/L (34-104); Aspartate Amino Transferase 27 Units/L (13-39); BUN/Creatinine Ratio 8 (6-26); Bilirubin,Direct 0.2 mg/dL (0.0-0.2); Bilirubin,Indirect 0.8 mg/dL (0.0-1.0); Blood Urea Nitrogen 11 mg/dL (8-23); Calcium 9.4 mg/dL (8.6-10.3); Carbon Dioxide 28 mEq/L (23-29); Chloride 104 mEq/L (98-107); Globulin 2.4 g/dL (2.4-3.5); Glucose 135 mg/dL (70-105); Osmolality,Calculated 295 (280-300); Potassium 3.3 mEq/L (3.5-5.1); Sodium 142 mEq/L (136-145); eGFR For African Americans > 60 (> 60); eGFR For Non-African Americans 55 (> 60)
[2019-12-22] MEDS ORDERED: Potassium Chloride Elixir 20 MEQ/15 ML UDC PO ONE (06:08)
[2019-12-22 06:09] LABS: Troponin I 0.06 ng/mL (< 0.04)
[2019-12-22] MEDS ORDERED: Aspirin 325 MG TABLET PO ONE (06:15)
[2019-12-22] MEDS ORDERED: Naloxone 0.4 MG/ML INJ IVP PRN (07:22)
[2019-12-22] MEDS ORDERED: Ondansetron 4 MG/2 ML VIAL IVP PRN (07:22)
[2019-12-22] MEDS ORDERED: Perflutren Lipid Microsphere 1.3 ML in 0.9 % Sodium Chloride 8.7 ML IVP PRN (07:24)
[2019-12-22] MEDS ORDERED: Furosemide 20 MG/2 ML VIAL IVP ONE (08:18)
[2019-12-22] MEDS ORDERED: *HR* Dextrose 50 % in Water (Vial) 50 ML VIAL IVP PRN (08:44)
[2019-12-22] MEDS ORDERED: Dextrose Gel 15 GM/37.5 ML TUBE PO PRN ×2 (08:44)
[2019-12-22] MEDS ORDERED: D5% in Water 1,000 ML IVC PRN (08:44)
[2019-12-22 08:54] LABS: Magnesium 2.1 mg/dL (1.6-2.6); Phosphorous 3.3 mg/dL (2.7-4.5)
[2019-12-22] MEDS: Insulin DETEMIR 100 UNIT/ML X5UNITS SQ SCH ×2 (12:33→20:19)
[2019-12-22] MEDS: *HR* HYDROcodone/Acet 5/325 mg TABLET PO PRN (16:07)
[2019-12-22] MEDS: *HR* Heparin 5,000 UNIT/ML VIAL SQ SCH (17:47)
[2019-12-23] MEDS: *HR* HYDROcodone/Acet 5/325 mg TABLET PO PRN ×2 (04:14→17:13)
[2019-12-23] MEDS: *HR* Heparin 5,000 UNIT/ML VIAL SQ SCH ×2 (05:22→17:10)
[2019-12-23 05:34] LABS: Basophils # 0.1 K/mcL (0.0-0.2); Basophils % 1.2 %; Eosinophils # 0.6 K/mcL (0.0-0.6); Eosinophils % 6.3 %; Hematocrit 49.1 % (37.5-50.1); Hemoglobin 15.4 g/dL (12.9-16.9); Immature Granulocytes % 0.3 % (0-4); Lymphocytes # 2.2 K/mcL (0.6-4.6); Lymphocytes % 23.3 %; Mean Corpuscular HGB Conc 31.4 g/dL (31.6-35.5); Mean Corpuscular Hemoglobin 27.9 pg (28.0-33.3); Mean Corpuscular Volume 89.1 fL (83.0-100.0); Mean Platelet Volume 10.1 fL (9.4-12.4); Monocytes # 0.8 K/mcL (0.0-1.3); Neutrophils # 5.5 K/mcL (1.6-8.9); Platelet Count 221 K/mcL (140-400); Red Blood Count 5.51 M/mcL (4.19-5.50); Red Cell Distribution Width 13.3 % (11.5-14.5); Segmented Neutrophils % 59.9 %; White Blood Count 9.2 K/mcL (4.3-11.1)
[2019-12-23 05:48] LABS: BUN/Creatinine Ratio 17 (6-26); Blood Urea Nitrogen 21 mg/dL (8-23); Calcium 8.9 mg/dL (8.6-10.3); Carbon Dioxide 29 mEq/L (23-29); Chloride 105 mEq/L (98-107); Glucose 114 mg/dL (70-105); Osmolality,Calculated 296 (280-300); Potassium 3.5 mEq/L (3.5-5.1); Sodium 141 mEq/L (136-145); eGFR For African Americans > 60 (> 60); eGFR For Non-African Americans 59 (> 60)
[2019-12-23] MEDS ORDERED: Regadenoson 0.4 MG/5 ML SYRINGE IVP ONE (06:20)
[2019-12-23] MEDS: Insulin DETEMIR 100 UNIT/ML X5UNITS SQ SCH ×2 (10:10→21:10)
[2019-12-23] MEDS: lisinopriL 20 MG TABLET PO SCH (10:11)
[2019-12-23] MEDS: Aspirin Enteric Coated 81 MG Tablet PO SCH (10:12)
[2019-12-24 02:08] LABS: Hemoglobin 15.7 g/dL (12.9-16.9); Mean Corpuscular Hemoglobin 28.5 pg (28.0-33.3); Mean Corpuscular Volume 88.9 fL (83.0-100.0); Mean Platelet Volume 10.3 fL (9.4-12.4); Platelet Count 224 K/mcL (140-400); Red Blood Count 5.51 M/mcL (4.19-5.50); Red Cell Distribution Width 13.2 % (11.5-14.5); White Blood Count 9.8 K/mcL (4.3-11.1)
[2019-12-24 02:14] LABS: BUN/Creatinine Ratio 19 (6-26); Blood Urea Nitrogen 23 mg/dL (8-23); Calcium 9.1 mg/dL (8.6-10.3); Carbon Dioxide 26 mEq/L (23-29); Chloride 102 mEq/L (98-107); Glucose 161 mg/dL (70-105); Osmolality,Calculated 293 (280-300); Potassium 3.6 mEq/L (3.5-5.1); Sodium 138 mEq/L (136-145); eGFR For African Americans > 60 (> 60); eGFR For Non-African Americans 59 (> 60)
[2019-12-24] MEDS: *HR* Heparin 5,000 UNIT/ML VIAL SQ SCH ×2 (05:08→16:11)
[2019-12-24] MEDS ORDERED: 0.9 % Sodium Chloride 1,000 ML ONE (14:09)
[2019-12-24] MEDS ORDERED: ISOVUE-370 200 ML INFUS..BTL ONE (14:09)
[2019-12-24] MEDS ORDERED: *HR* Heparin 10,000 UNIT/10 ML VIAL ONE (14:09)
[2019-12-24] MEDS ORDERED: Heparin 1,000 UNITS/500 mL 500 ML ONE (14:09)
[2019-12-24] MEDS ORDERED: Nitroglycerin 1,000 MCG/10 ML VIAL IV ONE (14:09)
[2019-12-24] MEDS ORDERED: *HR* Midazolam HCl 2 MG/2 ML VIAL ONE (14:40)
[2019-12-24] MEDS ORDERED: *HR* FentaNYL (PF) 100 MCG/2 ML VIAL ONE ×2 (14:40→15:27)
[2019-12-24] MEDS: Insulin DETEMIR 100 UNIT/ML X5UNITS SQ SCH (16:10)
[2019-12-24] MEDS: Aspirin Enteric Coated 81 MG Tablet PO SCH (16:10)
[2019-12-24] MEDS: lisinopriL 20 MG TABLET PO SCH (16:12)
[2019-12-24] MEDS ORDERED: 0.9 % Sodium Chloride 1,000 ML IVC SCH (16:30)
[2019-12-24 18:31] VITALS: BP 117/71
== END 2019-12-24 19:02 | disposition home or self-care (01) ==
LOC: EMEROOARM 04:20 → 3BNU 04:20 → SUATTDRO 06:44 → 3BNU 08:28
PROVIDERS: ADMIT Internal Medicine; ATTEND Internal Medicine

== ENCOUNTER 2020-01-06 17:26 | Observation (INO) ==
[2020-01-06] MEDS ORDERED: *HR* HYDROmorphone (PF) 1 MG/ML SYRINGE IVP ONE ×2 (18:04→20:38)
[2020-01-06 18:17] LABS: Bilirubin,Urine Negative (Negative); Blood,Urine Negative (Negative); Clarity,Urine Clear (Clear); Color,Urine Light-Yellow (Yellow); Glucose,Urine (UA) >=1000 mg/dL (Normal); Ketones,Urine Trace mg/dL (Negative); Leukocyte Esterase,Urine Negative (Negative); Mucus,Urine Few per lpf (None-Few); Nitrite,Urine Negative (Negative); PH,Urine 5.5 pH Units (5.0-8.0); Protein,Urine Negative (Neg-Trace); RBC,Urine 0-3 per hpf (0-3); Specific Gravity,Urine > 1.030 (1.010-1.025); Squamous Epithelial Cell,Urine Few per hpf (None-Few); Urobilinogen,Urine Normal (Normal); WBC,Urine 0-3 per hpf (0-3)
[2020-01-06 19:51] LABS: Basophils # 0.1 K/mcL (0.0-0.2); Basophils % 0.6 %; Eosinophils # 0.1 K/mcL (0.0-0.6); Eosinophils % 0.4 %; Hematocrit 51.2 % (37.5-50.1); Hemoglobin 16.8 g/dL (12.9-16.9); Immature Granulocytes % 0.4 % (0-4); Lymphocytes # 0.9 K/mcL (0.6-4.6); Lymphocytes % 6.1 %; Mean Corpuscular HGB Conc 32.8 g/dL (31.6-35.5); Mean Corpuscular Hemoglobin 29.5 pg (28.0-33.3); Mean Platelet Volume 10.4 fL (9.4-12.4); Monocytes # 0.6 K/mcL (0.0-1.3); Monocytes % 4.4 %; Neutrophils # 12.3 K/mcL (1.6-8.9); Platelet Count 240 K/mcL (140-400); Red Blood Count 5.69 M/mcL (4.19-5.50); Red Cell Distribution Width 13.2 % (11.5-14.5); Segmented Neutrophils % 88.1 %; White Blood Count 13.9 K/mcL (4.3-11.1)
[2020-01-06 19:56] LABS: INR 1.2; Prothrombin Time 13.8 Seconds (9.4-12.1)
[2020-01-06 19:58] LABS: Activated Partial Thrombo Time 30.8 Seconds (26.0-36.0)
[2020-01-06 20:11] LABS: BUN/Creatinine Ratio 19 (6-26); Blood Urea Nitrogen 24 mg/dL (8-23); C-Reactive Protein < 5 mg/L (Less than 10); Calcium 9.5 mg/dL (8.6-10.3); Carbon Dioxide 22 mEq/L (23-29); Chloride 107 mEq/L (98-107); Glucose 186 mg/dL (70-105); Osmolality,Calculated 301 (280-300); Sodium 141 mEq/L (136-145); eGFR For African Americans > 60 (> 60); eGFR For Non-African Americans 57 (> 60)
[2020-01-06] MEDS ORDERED: Gabapentin 300 MG CAPSULE PO PRN (21:40)
[2020-01-06] MEDS ORDERED: Ondansetron 4 MG/2 ML VIAL IVP PRN (22:22)
[2020-01-06] MEDS ORDERED: Naloxone 0.4 MG/ML INJ IVP PRN (22:22)
[2020-01-06] MEDS ORDERED: Acetaminophen 325 MG TABLET PO PRN (22:22)
[2020-01-06] MEDS ORDERED: Dextrose Gel 15 GM/37.5 ML TUBE PO PRN ×2 (22:25)
[2020-01-06] MEDS ORDERED: *HR* Dextrose 50 % in Water (Vial) 50 ML VIAL IVP PRN (22:25)
[2020-01-06] MEDS ORDERED: D5% in Water 1,000 ML IVC PRN (22:25)
[2020-01-06] MEDS ORDERED: Insulin DETEMIR 100 UNIT/ML X5UNITS SQ SCH (22:30)
[2020-01-06] MEDS: Ringers Solution, Lactated 1,000 ML IVC SCH (23:55)
[2020-01-07] MEDS: Insulin LISPRO 300 UNITS/3 ML VIAL SQ SCH ×4 (00:18→22:02)
[2020-01-07] MEDS: *HR* HYDROcodone/Acet 5/325 mg TABLET PO PRN ×3 (02:30→18:57)
[2020-01-07 02:39] LABS: Basophils # 0.1 K/mcL (0.0-0.2); Eosinophils # 0.3 K/mcL (0.0-0.6); Eosinophils % 2.8 %; Hematocrit 50.8 % (37.5-50.1); Immature Granulocytes % 0.3 % (0-4); Lymphocytes # 1.9 K/mcL (0.6-4.6); Lymphocytes % 18.6 %; Mean Corpuscular HGB Conc 31.5 g/dL (31.6-35.5); Mean Corpuscular Hemoglobin 28.8 pg (28.0-33.3); Mean Corpuscular Volume 91.4 fL (83.0-100.0); Mean Platelet Volume 10.4 fL (9.4-12.4); Monocytes % 9.6 %; Platelet Count 252 K/mcL (140-400); Red Blood Count 5.56 M/mcL (4.19-5.50); Red Cell Distribution Width 13.2 % (11.5-14.5); Segmented Neutrophils % 67.7 %; White Blood Count 10.4 K/mcL (4.3-11.1)
[2020-01-07 02:44] LABS: INR 1.2; Prothrombin Time 13.7 Seconds (9.4-12.1)
[2020-01-07 02:55] LABS: Calcium 9.2 mg/dL (8.6-10.3); Chol/HDL Ratio 2.4 (0-4.9); Magnesium 2.2 mg/dL (1.6-2.6); Potassium 4.1 mEq/L (3.5-5.1)
[2020-01-07] MEDS ORDERED: *HR* OxyCODONE/APAP 10/325 TABLET PO ONE (03:41)
[2020-01-07] MEDS ORDERED: Gabapentin 300 MG CAPSULE PO SCH (09:00)
[2020-01-07] MEDS: Aspirin Enteric Coated 81 MG Tablet PO SCH (10:50)
[2020-01-07] MEDS: Ringers Solution, Lactated 1,000 ML IVC SCH (11:04)
[2020-01-07] MEDS ORDERED: MethylPREDNISolone 40 MG/ML VIAL IVP ONE ×2 (13:36→21:51)
[2020-01-07] MEDS ORDERED: Furosemide 20 MG TABLET PO SCH (15:15)
[2020-01-07] MEDS ORDERED: diazePAM 5 MG TABLET PO PRN (15:20)
[2020-01-07] MEDS: Insulin DETEMIR 100 UNIT/ML X5UNITS SQ SCH (22:01)
[2020-01-07] MEDS: Gabapentin 300 MG CAPSULE PO SCH (22:01)
[2020-01-08 02:41] LABS: Basophils # 0.1 K/mcL (0.0-0.2); Basophils % 0.6 %; Eosinophils # 0.1 K/mcL (0.0-0.6); Eosinophils % 0.7 %; Hematocrit 50.1 % (37.5-50.1); Hemoglobin 15.9 g/dL (12.9-16.9); Immature Granulocytes % 0.5 % (0-4); Lymphocytes # 0.8 K/mcL (0.6-4.6); Mean Corpuscular HGB Conc 31.7 g/dL (31.6-35.5); Mean Corpuscular Hemoglobin 29.3 pg (28.0-33.3); Mean Corpuscular Volume 92.4 fL (83.0-100.0); Mean Platelet Volume 10.3 fL (9.4-12.4); Monocytes # 0.2 K/mcL (0.0-1.3); Monocytes % 1.9 %; Neutrophils # 9.7 K/mcL (1.6-8.9); Platelet Count 233 K/mcL (140-400); Red Blood Count 5.42 M/mcL (4.19-5.50); Red Cell Distribution Width 13.4 % (11.5-14.5); Segmented Neutrophils % 89.3 %; White Blood Count 10.8 K/mcL (4.3-11.1)
[2020-01-08 02:55] LABS: BUN/Creatinine Ratio 26 (6-26); Blood Urea Nitrogen 33 mg/dL (8-23); Calcium 9.2 mg/dL (8.6-10.3); Carbon Dioxide 25 mEq/L (23-29); Chloride 107 mEq/L (98-107); Glucose 147 mg/dL (70-105); Osmolality,Calculated 300 (280-300); Potassium 4.3 mEq/L (3.5-5.1); Sodium 140 mEq/L (136-145); eGFR For African Americans > 60 (> 60); eGFR For Non-African Americans 58 (> 60)
[2020-01-08] MEDS: *HR* Enoxaparin 40 MG/0.4 ML SYRINGE SQ SCH (06:24)
[2020-01-08] MEDS: *HR* HYDROcodone/Acet 5/325 mg TABLET PO PRN ×2 (08:17→15:16)
[2020-01-08] MEDS: lisinopriL 20 MG TABLET PO SCH (08:18)
[2020-01-08] MEDS: Gabapentin 300 MG CAPSULE PO SCH ×3 (08:18→20:14)
[2020-01-08] MEDS: Aspirin Enteric Coated 81 MG Tablet PO SCH (08:18)
[2020-01-08] MEDS: Insulin DETEMIR 100 UNIT/ML X5UNITS SQ SCH ×2 (08:24→20:29)
[2020-01-08] MEDS: Insulin LISPRO 300 UNITS/3 ML VIAL SQ SCH ×3 (08:25→20:29)
[2020-01-08] MEDS ORDERED: predniSONE 20 MG TABLET PO SCH (09:00)
[2020-01-09] MEDS: *HR* HYDROcodone/Acet 5/325 mg TABLET PO PRN (06:49)
[2020-01-09] MEDS: *HR* Enoxaparin 40 MG/0.4 ML SYRINGE SQ SCH (06:49)
[2020-01-09] MEDS: Aspirin Enteric Coated 81 MG Tablet PO SCH (08:31)
[2020-01-09] MEDS: Gabapentin 300 MG CAPSULE PO SCH (08:31)
[2020-01-09] MEDS: lisinopriL 20 MG TABLET PO SCH (08:32)
[2020-01-09] MEDS: Insulin DETEMIR 100 UNIT/ML X5UNITS SQ SCH (08:34)
[2020-01-09] MEDS ORDERED: FLU Vac QV 20-21 (6Month+)/PF 0.5 ML SYRINGE IM ONE (08:47)
[2020-01-09 12:04] VITALS: BP 108/68
== END 2020-01-09 15:15 | disposition home or self-care (01) ==
LOC: EMEROOARM 17:26 → 3NENU 17:26 → SUATTDRO 22:13 → 3NENU 23:04
PROVIDERS: ADMIT Internal Medicine; ATTEND Internal Medicine

== ENCOUNTER 2020-02-29 04:28 | Observation (INO) ==
[2020-02-29] MEDS ORDERED: Isovue-370 500 ML BOTTLE IVP ONE (04:43)
[2020-02-29 05:04] LABS: Basophils # 0.1 K/mcL (0.0-0.2); Basophils % 0.5 %; Eosinophils # 0.1 K/mcL (0.0-0.6); Eosinophils % 0.6 %; Hematocrit 48.4 % (37.5-50.1); Hemoglobin 15.4 g/dL (12.9-16.9); Immature Granulocytes % 0.4 % (0-4); Lymphocytes # 1.3 K/mcL (0.6-4.6); Lymphocytes % 10.3 %; Mean Corpuscular HGB Conc 31.8 g/dL (31.6-35.5); Mean Corpuscular Hemoglobin 28.7 pg (28.0-33.3); Mean Corpuscular Volume 90.3 fL (83.0-100.0); Mean Platelet Volume 10.2 fL (9.4-12.4); Monocytes # 0.9 K/mcL (0.0-1.3); Neutrophils # 9.9 K/mcL (1.6-8.9); Platelet Count 231 K/mcL (140-400); Red Blood Count 5.36 M/mcL (4.19-5.50); Red Cell Distribution Width 14.1 % (11.5-14.5); Segmented Neutrophils % 81.2 %; White Blood Count 12.2 K/mcL (4.3-11.1)
[2020-02-29 05:26] LABS: BUN/Creatinine Ratio 11 (6-26); Blood Urea Nitrogen 23 mg/dL (8-23); Calcium 9.4 mg/dL (8.6-10.3); Carbon Dioxide 27 mEq/L (23-29); Chloride 103 mEq/L (98-107); Ethanol < 10 mg/dL (Less than 10); Glucose 274 mg/dL (70-105); Magnesium 2.3 mg/dL (1.6-2.6); Osmolality,Calculated 301 (280-300); Potassium 5.6 mEq/L (3.5-5.1); Sodium 139 mEq/L (136-145); Troponin I < 0.03 ng/mL (< 0.04); eGFR For African Americans 40 (> 60); eGFR For Non-African Americans 33 (> 60)
[2020-02-29] MEDS ORDERED: 0.9 % Sodium Chloride 1,000 ML IVC ONE (05:27)
[2020-02-29 07:10] LABS: Bilirubin,Urine Negative (Negative); Blood,Urine Large (Negative); Clarity,Urine Clear (Clear); Color,Urine Yellow (Yellow); Glucose,Urine (UA) >=1000 mg/dL (Normal); Hyaline Casts,Urine Few per lpf (None Seen); Ketones,Urine Negative (Negative); Leukocyte Esterase,Urine Negative (Negative); Mucus,Urine Few per lpf (None-Few); Nitrite,Urine Negative (Negative); PH,Urine 5.5 pH Units (5.0-8.0); Protein,Urine 30 mg/dL (Neg-Trace); RBC,Urine 0-3 per hpf (0-3); Specific Gravity,Urine > 1.030 (1.010-1.025); Urobilinogen,Urine Normal (Normal); WBC,Urine 0-3 per hpf (0-3)
[2020-02-29] MEDS ORDERED: Ondansetron 4 MG/2 ML VIAL IVP PRN (07:14)
[2020-02-29] MEDS ORDERED: 0.9 % Sodium Chloride 1,000 ML IVC SCH (07:30)
[2020-02-29] MEDS ORDERED: *HR* Dextrose 50 % in Water (Vial) 50 ML VIAL IVP PRN (08:26)
[2020-02-29] MEDS ORDERED: Dextrose Gel 15 GM/37.5 ML TUBE PO PRN ×2 (08:26)
[2020-02-29] MEDS ORDERED: D5% in Water 1,000 ML IVC PRN (08:26)
[2020-02-29 08:39] LABS: Alanine Aminotransferase 64 Units/L (7-52); Albumin 4.4 g/dL (3.5-5.7); Albumin/Globulin Ratio 1.6 (1.1-2.2); Alkaline Phosphatase 112 Units/L (34-104); Aspartate Amino Transferase 52 Units/L (13-39); Bilirubin,Direct 0.1 mg/dL (0.0-0.2); Bilirubin,Indirect 0.5 mg/dL (0.0-1.0); Bilirubin,Total 0.6 mg/dL (0.3-1.0); Globulin 2.7 g/dL (2.4-3.5); Total Protein 7.1 g/dL (6.4-8.9)
[2020-02-29 08:52] LABS: Thyroid Stimulating Hormone 1.679 mcIU/mL (0.340-5.600)
[2020-02-29 09:06] LABS: Amphetamine Screen,Urine Negative ng/mL (Cutoff=1000); Barbiturate Screen,Urine Negative ng/mL (Cutoff=200); Benzodiazepines Screen,Urine Negative ng/mL (Cutoff=200); Cannabinoid Screen,Urine Negative ng/mL (Cutoff = 50); Cocaine Screen,Urine Negative ng/mL (Cutoff= 300); Opiate Screen,Urine Positive ng/mL (Cutoff=300); Phencyclidine Screen,Urine Negative ng/mL (Cutoff=25)
[2020-02-29] MEDS: Insulin DETEMIR 100 UNIT/ML X5UNITS SUBQ SCH ×2 (09:56→21:03)
[2020-02-29] MEDS: Aspirin Enteric Coated 81 MG Tablet PO SCH (09:57)
[2020-02-29 10:32] LABS: C-Reactive Protein < 5 mg/L (Less than 10)
[2020-02-29] MEDS: Insulin LISPRO 300 UNITS/3 ML VIAL SUBQ SCH ×3 (11:37→21:03)
[2020-02-29] MEDS: Acetaminophen 325 MG TABLET PO PRN (11:40)
[2020-02-29 12:43] LABS: Potassium 4.2 mEq/L (3.5-5.1)
[2020-02-29] MEDS ORDERED: Ibuprofen 600 MG TABLET PO ONE (21:28)
[2020-03-01 05:34] LABS: Hematocrit 42.7 % (37.5-50.1); Hemoglobin 13.9 g/dL (12.9-16.9); Mean Corpuscular HGB Conc 32.6 g/dL (31.6-35.5); Mean Corpuscular Hemoglobin 29.3 pg (28.0-33.3); Mean Corpuscular Volume 90.1 fL (83.0-100.0); Mean Platelet Volume 10.2 fL (9.4-12.4); Platelet Count 212 K/mcL (140-400); Red Blood Count 4.74 M/mcL (4.19-5.50); Red Cell Distribution Width 14.1 % (11.5-14.5); White Blood Count 10.3 K/mcL (4.3-11.1)
[2020-03-01 05:52] LABS: BUN/Creatinine Ratio 21 (6-26); Blood Urea Nitrogen 27 mg/dL (8-23); Carbon Dioxide 25 mEq/L (23-29); Chloride 109 mEq/L (98-107); Glucose 90 mg/dL (70-105); Osmolality,Calculated 299 (280-300); Phosphorous 2.6 mg/dL (2.7-4.5); Potassium 3.8 mEq/L (3.5-5.1); Sodium 142 mEq/L (136-145); eGFR For African Americans > 60 (> 60); eGFR For Non-African Americans 57 (> 60)
[2020-03-01] MEDS: Insulin LISPRO 300 UNITS/3 ML VIAL SUBQ SCH ×4 (07:38→19:25)
[2020-03-01] MEDS: Aspirin Enteric Coated 81 MG Tablet PO SCH (09:33)
[2020-03-01] MEDS: Insulin DETEMIR 100 UNIT/ML X5UNITS SUBQ SCH ×2 (09:33→20:26)
[2020-03-01] MEDS: *HR* Enoxaparin 40 MG/0.4 ML SYRINGE SQ SCH (11:47)
[2020-03-01] MEDS: Acetaminophen 325 MG TABLET PO PRN (17:41)
[2020-03-02] MEDS: *HR* Enoxaparin 40 MG/0.4 ML SYRINGE SQ SCH (05:43)
[2020-03-02] MEDS: Acetaminophen 325 MG TABLET PO PRN (05:43)
[2020-03-02 07:25] VITALS: BP 147/75
[2020-03-02] MEDS: Insulin LISPRO 300 UNITS/3 ML VIAL SUBQ SCH ×2 (08:02→12:00)
[2020-03-02] MEDS: Aspirin Enteric Coated 81 MG Tablet PO SCH (08:56)
[2020-03-02] MEDS: Insulin DETEMIR 100 UNIT/ML X5UNITS SUBQ SCH (08:59)
[2020-03-02] MEDS ORDERED: Insulin DETEMIR 100 UNIT/ML X5UNITS SUBQ ONE (10:00)
== END 2020-03-02 12:32 | disposition home or self-care (01) ==
LOC: EMEROOARM 04:28 → 2ANU 04:28 → SUATTDRO 06:37 → 2ANU 08:08
PROVIDERS: ADMIT Internal Medicine; ATTEND Family Medicine